=== PATIENT | female | born 2000 | race Caucasian/White ===

== ENCOUNTER 2022-05-28 12:56 | Emergency (ER) | payer OTHER ==
[~2022-05-28] VITALS: Ht 154.9 cm; Wt 52.6 kg
[2022-05-28 13:02] VITALS: BP 106/63
--- NOTE | 2022-05-28 13:43 | NUR ---
LAB AT BEDSIDE.
[2022-05-28 13:45] LABS: APPEARANCE,URINE CLOUDY (CLEAR); COLOR,URINE YELLOW (YELLOW)
[2022-05-28 13:46] LABS: BILIRUBIN,URINE NEGATIVE (NEGATIVE); BLOOD, URINE NEGATIVE (NEGATIVE); NITRITE, URINE NEGATIVE (NEGATIVE); PH,URINE 8.5 (5.0-9.0); UGLUCOSE NEGATIVE (NEGATIVE)
[2022-05-28 13:47] LABS: LEUKOCYTE ESTERASE ,URINE NEGATIVE (NEGATIVE)
--- NOTE | 2022-05-28 13:49 | NUR ---
US AT BEDSIDE
[2022-05-28 14:18] LABS: BASOPHILS % (AUTO) 0.3 % (0.0-2.0); EOSINOPHILS # (AUTO) 0.3 K/uL (0-0.4); EOSINOPHILS % (AUTO) 2.3 % (0.0-4.0); HEMATOCRIT 41.8 % (36-48); HEMOGLOBIN 14.1 g/dL (12.0-16.0); LYMPHOCYTES # (AUTO) 2.9 K/uL (2.5-16.5); LYMPHOCYTES % (AUTO) 24.3 % (20.5-51.1); MEAN CORPUSCULAR HEMOGLOBIN 28 pg (27-31); MEAN CORPUSCULAR HGB CONC 34 g/dL (33-37); MEAN CORPUSCULAR VOLUME 83.1 fL (80-94); MONOCYTES # (AUTO) 0.8 K/uL (0.8-1.0); MONOCYTES % (AUTO) 6.5 % (1.7-9.3); NEUTROPHILS % (AUTO) 66.6 % (42.2-75.2); PLATELET COUNT (AUTO) 196 K/uL (140-450); RED BLOOD CELL COUNT(AUTO) 5.03 MIL/uL (4.20-5.40); RED CELL DISTRIBUTION WIDTH 13.7 % (11.6-13.7); WHITE BLOOD COUNT (AUTO) 12.1 K/uL (4.8-10.8)
--- NOTE | 2022-05-28 14:40 | NUR ---
21F PRESENTS TO ED WITH C/O ABD PAIN AND VAGINAL DISCHARGE X1 WEEK. PT REPORTS BEING SEEN 05/23/22 AT [facility] AND DX WITH THREATENED MISCARRIAGE. PT REPORTS PAIN HAS WORSENED TODAY AND C/O AN INTERMITTENT CRAMPING/PRESSURE LIKE 7/10 PAIN TO LOWER ABD RADIATING TO LEFT FLANK. PT REPORTS N/V, STATES SHE HAS HAD N/V THROUGHOUT . PT DENIES DIARRHEA, FEVERS, CHILLS OR UTI SYMPTOMS. PT REPORTS TAKING TYLENOL WITH NO RELIEF.
[2022-05-28 17:30] VITALS: BP 97/57
--- NOTE | 2022-05-28 17:30 | NUR ---
Patient discharged with v/s stable. Written and verbal after care instructions about ovarian cyst and threatened miscarriage given and explained. Patient verbalized understanding. Ambulatory with steady gait. All questions addressed prior to discharge. Advised to follow up with PMD.
== END 2022-05-28 17:30 | disposition home or self-care (01) ==
LOC: MED 12:56
DX: O20.0 Threatened abortion (principal); Z3A.01 Less than 8 weeks gestation of pregnancy
CPT/HCPCS: 36415; 76801; 81003; 84702; 85025; 86900; 86901; 99284; Q0092

== ENCOUNTER 2022-12-20 14:45 | Observation (INO) | payer OTHER ==
[~2022-12-20] VITALS: Ht 154.9 cm; Wt 62.6 kg
[2022-12-20] MEDS ORDERED: PREN-543 PO (15:28)
[2022-12-20] MEDS ORDERED: FERR325E14 PO (15:28)
[2022-12-20] MEDS ORDERED: OSC500 PO (15:28)
[2022-12-20 16:35] VITALS: BP 101/70; PULSE 103; TEMP 97.9
== END 2022-12-20 15:55 | disposition home or self-care (01) ==
LOC: MLD 14:45
PROVIDERS: ADMIT Obstetrics & Gynecology; ATTEND Obstetrics & Gynecology
DX: O62.9 Abnormality of forces of labor, unspecified (principal); Z3A.39 39 weeks gestation of pregnancy
CPT/HCPCS: G0378

== ENCOUNTER 2022-12-26 14:01 | Inpatient (IN) | payer OTHER ==
[~2022-12-26] VITALS: Ht 154.9 cm; Wt 64.0 kg
[~2022-12-26 14:01] MED LIST: FERR325E14 PO; OSC500 PO; PREN-543 PO
[2022-12-26] MEDS ORDERED: OXYTOCIN 20 UNITS in LACTATED RINGERS 1,000 ML IV SCH ×2 (14:25→22:00)
[2022-12-26] MEDS ORDERED: METHYLERGONOVINE 0.2 MG/ML AMP IM PRN (14:25)
[2022-12-26] MEDS ORDERED: CARBOPROST 250 MCG/ML AMP IM PRN (14:25)
[2022-12-26] MEDS: LACTATED RINGERS 1,000 ML IV SCH ×2 (14:52→21:55)
[2022-12-26 15:00] VITALS: BP 103/60; PULSE 100; RESP 18; TEMP 98; O2SAT 98
[2022-12-26 15:11] LABS: BASOPHILS # (AUTO) 0.1 K/uL (0.00-0.22); BASOPHILS % (AUTO) 0.4 % (0.0-2.0); EOSINOPHILS # (AUTO) 0.1 K/uL (0-0.4); HEMATOCRIT 37.8 % (36-48); HEMOGLOBIN 12.9 g/dL (12.0-16.0); LYMPHOCYTES # (AUTO) 2.1 K/uL (2.5-16.5); LYMPHOCYTES % (AUTO) 16.7 % (20.5-51.1); MEAN CORPUSCULAR HEMOGLOBIN 28 pg (27-31); MEAN CORPUSCULAR HGB CONC 34 g/dL (33-37); MEAN CORPUSCULAR VOLUME 80.6 fL (80-94); MONOCYTES # (AUTO) 0.8 K/uL (0.8-1.0); MONOCYTES % (AUTO) 6.6 % (1.7-9.3); NEUTROPHILS # (AUTO) 9.6 K/uL (1.8-7.7); NEUTROPHILS % (AUTO) 75.3 % (42.2-75.2); PLATELET COUNT (AUTO) 109 K/uL (140-450); RED BLOOD CELL COUNT(AUTO) 4.69 MIL/uL (4.20-5.40); RED CELL DISTRIBUTION WIDTH 14.3 % (11.6-13.7); WHITE BLOOD COUNT (AUTO) 12.8 K/uL (4.8-10.8)
[2022-12-26 15:42] LABS: APPEARANCE,URINE CLEAR (CLEAR); BILIRUBIN,URINE NEGATIVE (NEGATIVE); BLOOD, URINE NEGATIVE (NEGATIVE); LEUKOCYTE ESTERASE ,URINE NEGATIVE (NEGATIVE); NITRITE, URINE NEGATIVE (NEGATIVE); PROTEIN,URINE 1+ (NEGATIVE); UGLUCOSE NEGATIVE (NEGATIVE)
[2022-12-26 15:45] LABS: COLOR,URINE AMBER (YELLOW)
[2022-12-26] MEDS ORDERED: MISOPROSTOL 25 MCG TAB VG SCH (16:00)
[2022-12-26] MEDS ORDERED: ROPIVACAINE 0.2%/NS PREMIX 200 ML EPI SCH (21:50)
[2022-12-26 22:10] LABS: INR 0.9 (0.8-1.2); PARTIAL THROMBOPLASTIN TIME 27.7 secs (22-35.6); PROTHROMBIN TIME 9.5 secs (10.8-13.4)
[2022-12-26] MEDS ORDERED: ROPIVACAINE 0.2%/NS PREMIX 200 ML EPI ONE (22:12)
[2022-12-26] MEDS ORDERED: fentaNYL citrate 0.05 MG/ML VIAL ONE (22:40)
[2022-12-26] MEDS ORDERED: OXYTOCIN 20 UNITS/LR PREMIX 1,000 ML IV ONE (23:53)
[2022-12-27] MEDS: LACTATED RINGERS 1,000 ML IV SCH (07:16)
[2022-12-27] MEDS ORDERED: BENZOCAINE/MENTHOL 20%-0.5% 60 GM CAN TP PRN (08:05)
[2022-12-27] MEDS ORDERED: IBUPROFEN 800 MG TAB PO PRN (08:05)
[2022-12-27] MEDS ORDERED: TEMAZEPAM 15 MG CAP PO PRN (08:05)
[2022-12-27] MEDS ORDERED: METHYLERGONOVINE 0.2 MG/ML AMP IM PRN (08:05)
[2022-12-27] MEDS ORDERED: oxyCODONE/APAP 5/325 MG 1 TAB TAB PO PRN ×2 (08:05)
[2022-12-27] MEDS ORDERED: METHYLERGONOVINE 0.2 MG TAB PO PRN (08:05)
[2022-12-27] MEDS ORDERED: OXYTOCIN 10 UNITS/ML VIAL IM PRN (08:05)
[2022-12-27] MEDS ORDERED: DOCUSATE SOD/SENNA 50/8.6 MG 1 TAB PO SCH (21:00)
[2022-12-28 06:24] LABS: HEMATOCRIT 32.8 % (36-48); HEMOGLOBIN 11.3 g/dL (12.0-16.0)
== END 2022-12-28 13:30 | disposition home or self-care (01) | DRG 560 ==
LOC: OBSVTOIN 14:01 → MLD 14:01 → MFCC 12-27 10:25
PROVIDERS: ADMIT Obstetrics & Gynecology; ATTEND Obstetrics & Gynecology
PROC: 10D07Z6 Extraction of Products of Conception, Vacuum, Via Natural or Artificial Opening (ICD-10-PCS; principal; 2022-12-27)
PROC: 3E0R3BZ Introduction of Anesthetic Agent into Spinal Canal, Percutaneous Approach (ICD-10-PCS; 2022-12-27)
PROC: 00HU33Z Insertion of Infusion Device into Spinal Canal, Percutaneous Approach (ICD-10-PCS; 2022-12-27)
PROC: 3E0P7VZ Introduction of Hormone into Female Reproductive, Via Natural or Artificial Opening (ICD-10-PCS; 2022-12-27)
DX: O76 Abnormality in fetal heart rate and rhythm complicating labor and delivery (principal); Z37.0 Single live birth; D69.6 Thrombocytopenia, unspecified; Z20.822 Contact with and (suspected) exposure to COVID-19; Z3A.39 39 weeks gestation of pregnancy; R71.0 Precipitous drop in hematocrit
CPT/HCPCS: 36415; 51702; 59200; 81003; 85018; 85025; 85610; 85730; 86592; 86886; 86900; 86901; 90715; J2590; J2795; J3010; J7120